=== PATIENT | male | born 1985 | race Caucasian/White ===

== ENCOUNTER → 2022-06-14 | Outpatient (CLI) | payer BC ==
[~2022-06-14] MED LIST: FLOMAX0.4 MG PO; PERCOCET 5/325 T1 EA PO; TORADOL 10 MG T10 MG PO; ZOFRAN4 MG PO
== END ==
LOC: KOH-I 10:13
DX: M54.12 Radiculopathy, cervical region (principal)
CPT/HCPCS: 72050